=== PATIENT | male | born 1965 | race Caucasian/White ===

== ENCOUNTER 2021-04-08 21:40 | Emergency (ER) | payer BC ==
[2021-04-08 22:14] VITALS: BP 139/78; PULSE 61; RESP 20; TEMP 98.5
[2021-04-08] MEDS ORDERED: DIPH,PERTUS(ACELL)TETVAC-LF 0.5 ML VIAL IM ONE (22:31)
[2021-04-08] MEDS ORDERED: LIDOCAINE 1% INJ 10MG/ML (20 ML MDV) SQ ONE (22:31)
--- NOTE | 2021-04-08 23:12 | XR ---
EXAMINATION TYPE: XR finger LT DATE OF EXAM: 04/08/2021 COMPARISON: NONE HISTORY: Laceration TECHNIQUE: 3 views FINDINGS: There is comminuted fracture of the tuft of the distal phalanx of the middle finger left coats nd. There is no significant displacement. There is soft tissue swelling. I see no foreign body. IMPRESSION: Comminuted tuft fracture of the middle finger.
[2021-04-08] MEDS ORDERED: ceFAZolin 1,000 MG VIAL (IM USE) IM STA (23:19)
--- NOTE | 2021-04-08 23:19 | ED ---
Wound/Laceration HPI - General Chief Complaint: Wound/Laceration Stated Complaint: L hand finger laceration Time Seen by Provider: 04/08/21 22:22 Source: patient, RN notes reviewed Mode of arrival: ambulatory Limitations: no limitations - History of Present Illness Initial Comments: Patient is a 55-year-old male that presents to emergency department with a left metal finger laceration after getting it caught in a log splitter. Patient notes that he could not get stopped bleeding home so he can emergency room per his 's request. Patient is unsure of his tetanus status. Patient notes that he has full sensation and feeling in his finger and does not think it is broken. Patient denied any other issues or complaints at this time. Otherwise a well-appearing 55-year-old male no apparent distress or pain. He denied any chest pain shortness of breath headache nausea vomiting diarrhea constipation fever fatigue chills. - Related Data Home Medications Medication Instructions Recorded Confirmed Levothyroxine Sodium [Synthroid] 175 mcg PO DAILY 07/09/17 07/10/17 Allergies Allergy/AdvReac Type Severity Reaction Status Date / Time No Known Allergies Allergy Verified 04/08/21 22:14 Review of Systems ROS Statement: Those systems with pertinent positive or pertinent negative responses have been documented in the HPI. ROS Other: All systems not noted in ROS Statement are negative. Past Medical History Past Medical History: Thyroid Disorder History of Any Multi-Drug Resistant Organisms: None Reported Additional Past Surgical History / Comment(s): wisdom teeth removed Past Anesthesia/Blood Transfusion Reactions: No Reported Reaction Smoking Status: Never smoker Past Alcohol Use History: None Reported Past Drug Use History: None Reported - Past Family History Mother Family Medical History: No Reported History General Exam Limitations: no limitations General appearance: alert, in no apparent distress Head exam: Present: atraumatic, normocephalic, normal inspection Eye exam: Present: normal appearance, PERRL, EOMI. Absent: scleral icterus, conjunctival injection, periorbital swelling Neck exam: Present: normal inspection Respiratory exam: Present: normal lung sounds bilaterally. Absent: respiratory distress, wheezes, rales, rhonchi, stridor Cardiovascular Exam: Present: regular rate, normal rhythm, normal heart sounds. Absent: systolic murmur, diastolic murmur, rubs, gallop, clicks Extremities exam: Present: normal inspection, full ROM, normal capillary refill. Absent: tenderness, pedal edema, joint swelling, calf tenderness Neurological exam: Present: alert, oriented X3 Psychiatric exam: Present: normal affect, normal mood Skin exam: Present: warm, dry, intact, normal color. Absent: rash Expanded Type of lesion: Present: laceration (To the distal pad of the left middle finger measuring approximately 2 cm, small abrasion to the left ring finger measuring 1 cm.) Course Vital Signs 04/08/21 22:11 Temperature 98.5 F Pulse Rate 61 Respiratory 20 Rate Blood Pressure 139/78 O2 Sat by Pulse 96 Oximetry Procedures - Laceration Laceration #2 Consent Obtained: verbal consent Indication: laceration Site: hand (Left middle finger distal pad) Size (cm): 2 Description: linear Depth: simple, single layer Anesthetic Used: lidocaine 1% Anesthesia Technique: nerve block Amount (mls): 8 Pre-repair: irrigated extensively Type of Sutures: nylon Size of Sutures: 4-0 Number of Sutures: 7 Technique: running Patient Tolerated Procedure: well, no complications Medical Decision Making - Medical Decision Making 55-year-old male with a left middle finger distal pad laceration from the lungs were. X-ray of the left middle finger, again ordered. Tetanus vaccine updated. Patient tolerated suturing well. X-ray shows a comminuted tuft fracture of the distal phalanx of the left middle finger. 1 g of Kefzol ordered. Patient will be sent and a [facility] pharmacy. Case discussed with Dr. Davies outpatient discharge home. - Radiology Data Radiology results: report reviewed, image reviewed X-ray of the left middle finger: Comminuted tuft fracture of the middle finger. Disposition Clinical Impression: Laceration Disposition: HOME SELF-CARE Condition: Stable Instructions (If sedation given, give patient instructions): Laceration (ED), Care For Your Stitches (ED) Additional Instructions: Please return to the Emergency Department if symptoms worsen or any other concerns. Follow-up with primary care 1-2 days. Please return in 7-10 days to have sutures removed. Keep area clean and dry. Take Tylenol Motrin as needed for pain. Take antibiotics as prescribed until complete. Is patient prescribed a controlled substance at d/c from ED?: No Referrals: Dasha Evans MD [Primary Care Provider] - 1-2 days Time of Disposition: 00:09
[2021-04-08] MEDS ORDERED: TOPICAL SKIN ADHESIVE 1 EACH AMP TOPICAL ONE (23:49)
== END 2021-04-09 00:17 | disposition home or self-care (01) ==
LOC: EC 21:40
DX: S61.213A Laceration without foreign body of left middle finger without damage to nail, initial encounter (principal); Z79.890 Hormone replacement therapy; W26.8XXA Contact with other sharp object(s), not elsewhere classified, initial encounter
CPT/HCPCS: 73140; 90715; 12001; 90471; 99283; J0690; J2001